=== PATIENT | male | born 1980 | race Caucasian/White ===

== ENCOUNTER 2023-05-28 19:13 | Emergency (ER) | payer OTHER, SELFPAY ==
[2023-05-28 19:17] VITALS: BP 138/80; PULSE 90; RESP 18; TEMP 37.2; O2SAT 100; BMI 24.5
--- NOTE | 2023-05-28 19:25 | ED.GENADULT ---
HPI - General Adult General Chief complaint: Skin/Abscess/Foreign Body Stated complaint: Infection on scalp Time Seen by Provider: 05/28/23 19:25 History of Present Illness HPI narrative: Pt c/o lump to left side of head that appeared about two weeks ago. Hx cyst in the same spot previously. 43-year-old man here with concern of some pain and swelling on the left side of his head above his ear. No fever. No trauma. He has noticed a lump there starting maybe a year ago. About a week and a half ago maybe 2 weeks he popped it and got some cheesy material out. Over the last couple of days it has gotten more swollen and painful. He has had some cysts elsewhere. Has gotten some in groin and armpit as well. He does not note a diagnosis of hidradenitis. He does smoke; primarily vaping now. Is in the area as drives truck. Related Data Home Medications Medication Instructions Recorded Confirmed No Known Home Medications 05/28/23 05/28/23 Allergies Allergy/AdvReac Type Severity Reaction Status Date / Time No Known Drug Allergies Allergy Verified 05/28/23 19:20 Review of Systems Status of ROS: Reports: 6 or more systems reviewed and unremarkable except as noted in History and below [facility] Social History Smoking Status: Current every day smoker What tobacco products do you use: cigarettes Smoking packs per day: 0.5 Smoking cigarettes per day: 10.0 Years smoked: 20 Smoking pack-years: 10.00 Do you use any of these nicotine containing products: None Second hand tobacco smoke exposure: No How often do you have a drink containing alcohol: never AUDIT-C Alcohol total score: 0 Non-prescribed substance use: denies use Exam Narrative: Exam Narrative: Pleasant. Good energy. Slim. Skin is warm and dry. Wearing a ball cap. Closely cropped hair. Under the left edge of CT is swelling anterior and superior to the left ear. Maximum dimension is 5 cm by 2.5 cm. Faintly erythematous. Lightly fluctuant. Tender. Looks like there is relatively central punctum. There is not significant erythema calor or induration of the skin itself. Shows a couple of scabs in the left axilla where he has expressed cyst/purulence. No inflammatory changes here. Const: Vital Signs, click to edit/add: Vital Signs - 24 hr 05/28/23 19:17 Temperature 98.9 F Pulse Rate [Pulse Oximeter] 90 Respiratory Rate 18 Blood Pressure [Ri ght Upper Arm] 138/80 Pulse Oximetry 100 Oxygen Delivery Me thod Room Air Documenting provider has reviewed patient's vital signs: yes Course Vital Signs Vital signs: Initial Vital Signs Temperature 98.9 F 05/28/23 19:17 Temperature Source Temporal Artery Scan 05/28/23 19:17 Pulse Rate 90 05/28/23 19:17 Respiratory Rate 18 05/28/23 19:17 Blood Pressure 138/80 05/28/23 19:17 Blood Pressure Mean 99 05/28/23 19:17 Blood Pressure Position Sitting 05/28/23 19:17 Pulse Oximetry 100 05/28/23 19:17 Oxygen Delivery Method Room Air 05/28/23 19:17 Vital Signs Temperature 98.9 F 05/28/23 19:17 Pulse Rate 90 05/28/23 19:17 Respiratory Rate 18 05/28/23 19:17 Blood Pressure 138/80 05/28/23 19:17 Pulse Oximetry 100 05/28/23 19:17 Oxygen Delivery Method Room Air 05/28/23 19:17 Temperature 98.9 F 05/28/23 19:17 Pulse Rate 90 05/28/23 19:17 Respiratory Rate 18 05/28/23 19:17 Blood Pressure 138/80 05/28/23 19:17 Pulse Oximetry 100 05/28/23 19:17 Oxygen Delivery Method Room Air 05/28/23 19:17 Medical Decision Making MDM Narrative Medical decision making narrative: At this point would be good to provide better drainage. I think I and D is in order for this apparent abscess without significant cellulitis. We discussed risks and benefits of procedure. Proceeded with fanned injection inferior approach ahead of the ear. Injected with 2 mL of 1% lidocaine. Excellent wound anesthesia achieved. Cleansed area further with Betadine. Incised with a 11 blade and expressed moderate amount of purulent and caseous material. Further exploration with curved mosquito to break up any remaining loculations and applied further pressure until only blood expressed. Then placed iodoform gauze 1/4 inch ribbon and antibiotic ointment fluffed gauze and Band-Aid. Tolerated procedure well. Minimal minimal bleeding estimated at 2-3 mL. Facial nerve looks to have been spared from anesthetic. Collected wound culture but I think I and D should be sufficient since does not appear to have significant cellulitis. See patient discharge plan for further discussion Discharge Plan Discharge Clinical Impression: Abscess of scalp, Sebaceous cyst Patient Disposition: Home, Self-Care Condition: Improved Additional Instructions: Change this dressing as needed or at least daily. Every day also pull out and cut away about an inch and half of gauze ribbon. Can use antibiotic ointment for the next 2-3 days. Be seen for spreading redness after 2 days, marked increase in pain or swelling. Considering some of the other places that you are getting cysts, you might want to use chlorhexidine gluconate (one brand name is Hibiclens) as soap particularly in the groin and armpit a couple of times weekly. Otherwise I would encourage you to do what you can to quit smoking. Safe travels and hi to [place] Prescriptions: No Action No Known Home Medications Follow Up/Referrals: Provider,Not a Local [Primary Care Provider] - Stand Alone Forms: [employer] Info Instructions
== END 2023-05-28 20:55 | disposition home or self-care (01) ==
PROVIDERS: Emergency Provider Family Medicine
DX: L02.811 Cutaneous abscess of head [any part, except face] (principal); L72.3 Sebaceous cyst
CPT/HCPCS: 10060; 87070; 99283; 99284